=== PATIENT | male | born 1965 | race Caucasian/White ===

== ENCOUNTER 2020-07-23 16:55 | Outpatient (CLI) | payer OTHER, SELFPAY | END 2020-07-23 16:56 | disposition home or self-care (01) | LOC: ANHCOVIDVC 16:55 | DX: Z23 Encounter for immunization (principal) | CPT/HCPCS: 0001A; 91300 ==

== ENCOUNTER 2020-08-13 16:46 | Outpatient (CLI) | payer OTHER, SELFPAY | END 2020-08-13 16:47 | disposition home or self-care (01) | LOC: ANHCOVIDVC 16:46 | DX: Z23 Encounter for immunization (principal) | CPT/HCPCS: 0002A; 91300 ==